=== PATIENT | male | born 1975 | race African-American/Black ===

== ENCOUNTER 2017-06-07 12:55 | Emergency (ER) | payer SELFPAY ==
[~2017-06-07] VITALS: Ht 170.2 cm; Wt 56.8 kg
[~2017-06-07 12:55] MED LIST: AMOXICILLIN500 MG PO; CIPRO500 MG PO; CIPROFLOXACIN500 M1 PO; COMBIVENT INH14.7 GM IH; DELZICOL400 MG PO; FLEXERIL5 MG PO; Flexeril PO; HYDROCODON-ACE1 EAC7 PO; KEFLEX500 MG PO; METRONIDAZOLE500 MG PO; MOTRIN600 MG PO; NAPROSYN500 MG PO; NICOTINE PATCH1 EAC2 TD; NOHOMEMEDS; PERCOCET 5/31 TABLET PO; PROMETHAZINE HC25 M1 PO; PROTONIX40 MG PO; Protonix PO; ULTRAM50 MG PO; VALIUM5 MG PO; VENTOLIN HFA18 GM IH; ZANTAC150 MG PO; ZANTAC300 MG PO; ZOFRAN4 MG PO
[2017-06-07 14:39] LABS: HEMATOCRIT 42.4 % (38.0-50.0); MCH 30.5 PG (29.0-34.0); MCV 92.4 FL (86-99); RBC DIS.WIDTH-CV 13.2 % (11.8-14.6); RBC DIS.WIDTH-SD 44.8 % (39-53); RED BLOOD COUNT 4.59 M/uL (4.00-5.50); WHITE BLOOD COUNT 8.1 K/uL (4.1-10.2)
[2017-06-07 14:47] LABS: AMYLASE 135 IU/L (1-118); CHLORIDE 104 mEq/L (99-109); POTASSIUM 3.7 mEq/L (3.7-5.4); SODIUM 140 mEq/L (136-147)
[2017-06-07 14:49] LABS: GLUCOSE 90 mg/dL (70-99)
[2017-06-07 14:50] LABS: ANION GAP 11 MEQ/L (2-14)
[2017-06-07 14:51] LABS: TOTAL BILIRUBIN 0.6 mg/dL (0.0-1.0)
[2017-06-07 14:52] LABS: ALKALINE PHOSPHATASE 110 IU/L (3-129); SERUM ETHYL ALCOHOL < 10 mg/dL
[2017-06-07 14:53] LABS: GFR ESTIMATE (CALCULATED) > 59 mL/min/
[2017-06-07 14:54] LABS: UREA NITROGEN (BUN) 7 mg/dL (9-23)
[2017-06-07 15:11] LABS: HEMATOLOGY COMMENT 1 SN; MEAN PLAT.VOLUME 11.1 uM^3 (9.0-12.4); PLAT.SUFFICIENCY ADEQUATE; PLATELET COUNT 226 K/uL (156-360)
[2017-06-07 15:12] LABS: DIRECT BILIRUBIN 0.3 mg/dL (0.0-0.3); LIPASE 7 U/L (1.0-51.0)
[2017-06-07 18:20] LABS: ADD MIUA? YES; BILIRUBIN NEGATIVE; BLOOD NEGATIVE; COLOR YELLOW ((YELLOW)); GLUCOSE (STRIP) NEGATIVE; KETONES 20; LEUKOCYTES TRACE; NITRITE NEGATIVE; PROTEIN (STRIP) NEGATIVE; UROBILINOGEN 0.2 MG/DL (0.2-1.0)
[2017-06-07 18:25] LABS: BACTERIA NONE SEEN /HPF; EPITHELIAL CELLS RARE /HPF; MUCUS TRACE /LPF; RED BLOOD CELLS 0-5 /HPF (0-5); UCUL ADDED? NO; WHITE BLOOD CELLS 0-5 /HPF (0-5)
[2017-06-07] MEDS ORDERED: BENTYL20 MG PO (18:31)
[2017-06-07] MEDS ORDERED: ZOFRAN ODT4 MG PO (18:31)
[2017-06-07] MEDS ORDERED: PHENERGAN25 MG PR (18:31)
[2017-06-07 19:05] VITALS: BP 133/78
== END 2017-06-07 19:06 | disposition home or self-care (01) ==
LOC: EME 12:55
PROVIDERS: Nurse Practitioner Family
DX: K50.90 Crohn's disease, unspecified, without complications (principal); R10.11 Right upper quadrant pain; R11.2 Nausea with vomiting, unspecified; Q61.01 Congenital single renal cyst; F17.200 Nicotine dependence, unspecified, uncomplicated
CPT/HCPCS: 74177; 80053; 81003; 82150; 82248; 83690; 85027; 99281; 99285; C9113; G0480; J0500; J2405; J2765; J3010; J7040

== ENCOUNTER 2017-07-22 01:46 | Emergency (ER) | payer OTHER ==
[~2017-07-22] VITALS: Ht 172.7 cm; Wt 60.6 kg
[~2017-07-22 01:46] MED LIST changes: +BENTYL20 MG PO; +PHENERGAN25 MG PR; +ZOFRAN ODT4 MG PO
[2017-07-22] MEDS ORDERED: PEN-VEE K,VEET500 MG PO (03:13)
[2017-07-22 04:02] VITALS: BP 115/77
== END 2017-07-22 04:04 | disposition home or self-care (01) ==
LOC: EME 01:46
DX: K08.89 Other specified disorders of teeth and supporting structures (principal); J02.9 Acute pharyngitis, unspecified
CPT/HCPCS: 99281; 99284

== ENCOUNTER 2017-09-13 21:43 | Emergency (ER) | payer OTHER ==
[~2017-09-13] VITALS: Ht 170.2 cm; Wt 62.3 kg
[~2017-09-13 21:43] MED LIST changes: +MOTRIN800 MG PO; +NORCO 7.5/321 TABLET PO; +PEN-VEE K,VEET500 MG PO
[2017-09-13] MEDS ORDERED: KEFLEX500 MG PO (23:42)
[2017-09-14 00:32] VITALS: BP 120/73
== END 2017-09-14 00:36 | disposition home or self-care (01) ==
LOC: EME 21:43
DX: S81.002A Unspecified open wound, left knee, initial encounter (principal); X58.XXXA Exposure to other specified factors, initial encounter; J45.909 Unspecified asthma, uncomplicated; F17.200 Nicotine dependence, unspecified, uncomplicated
CPT/HCPCS: 73564; 87070; 87075; 87077; 87147; 87186; 87205; 99281; 99284

== ENCOUNTER 2017-09-15 17:54 | Inpatient (IN) | payer OTHER ==
[~2017-09-15] VITALS: Ht 170.2 cm; Wt 60.2 kg
[2017-09-15 18:30] LABS: HEMATOCRIT 45.1 % (38.0-50.0); MCHC 33.7 G/DL (30.0-36.0); RBC DIS.WIDTH-CV 12.9 % (11.8-14.6); RBC DIS.WIDTH-SD 43.9 % (39-53); WHITE BLOOD COUNT 12.7 K/uL (4.1-10.2)
[2017-09-15 18:41] LABS: CHLORIDE 103 mEq/L (99-109); POTASSIUM 3.5 mEq/L (3.7-5.4); SODIUM 142 mEq/L (136-147)
[2017-09-15 18:42] LABS: GLUCOSE 91 mg/dL (70-99)
[2017-09-15 18:44] LABS: ANION GAP 10 MEQ/L (2-14)
[2017-09-15 18:46] LABS: GFR ESTIMATE (CALCULATED) > 59 mL/min/ (58.99-99999)
[2017-09-15 18:47] LABS: UREA NITROGEN (BUN) 10 mg/dL (9-23)
[2017-09-15 19:21] LABS: PLATELET CLUMPS PRESENT - PLATELET COUNT APPEARS ADQ.; PLATELET COUNT UNABLE TO REPORT K/uL (156-360)
[2017-09-15 22:34] VITALS: BP 118/73
[2017-09-16 06:45] LABS: ANION GAP 6 MEQ/L (2-14); CHLORIDE 105 MEQ/L (99-109); GFR ESTIMATE (CALCULATED) > 59 mL/min/ (58.99-99999); GLUCOSE 84 mg/dL (70-99); POTASSIUM 3.9 MEQ/L (3.7-5.4); SAMPLE HEMOLYSIS CHECK 0; SAMPLE ICTERIC CHECK 0; SAMPLE LIPEMIA CHECK 0; SODIUM 142 MEQ/L (136-147); UREA NITROGEN (BUN) 9 mg/dL (9-23)
[2017-09-16 08:14] VITALS: BP 123/62
[2017-09-16 09:06] LABS: EOSINOPHIL (%) 9.5 % (0-5); EOSINOPHIL COUNT 0.7 K/uL (0-0.3); HEMATOCRIT 38.6 % (38.0-50.0); IMMATURE GRANULOCYTE (%) 0.7 % (0.0-0.7); IMMATURE GRANULOCYTE COUNT 0.1 K/uL; INSTRUMENT ABS NEUTROPHIL CT 4.3 K/uL; LYMPHOCYTE COUNT 1.8 K/uL (1.0-2.8); MCH 29.9 PG (29.0-34.0); MCHC 32.4 G/DL (30.0-36.0); MCV 92.3 FL (86-99); MONOCYTE (%) 9.1 % (3-12); MONOCYTE COUNT 0.7 K/uL (0-0.8); NEUTROPHIL (%) 56.9 % (45-76); NEUTROPHIL COUNT 4.3 K/uL (1.8-6.4); RBC DIS.WIDTH-CV 12.9 % (11.8-14.6); RBC DIS.WIDTH-SD 43.6 % (39-53); RED BLOOD COUNT 4.18 M/uL (4.00-5.50); WHITE BLOOD COUNT 7.6 K/uL (4.1-10.2)
[2017-09-16 09:41] LABS: MEAN PLAT.VOLUME 11.2 uM^3 (9.0-12.4); PLAT.SUFFICIENCY ADEQUATE
[2017-09-16 09:57] LABS: PLATELET COUNT 204 K/uL (156-360)
[2017-09-16] MEDS ORDERED: BENADRYL50 MG PO (13:06)
[2017-09-16 16:34] VITALS: BP 109/60
[2017-09-16 19:48] VITALS: BP 130/69
[2017-09-16 23:58] VITALS: BP 125/62
[2017-09-17 07:50] VITALS: BP 144/75
[2017-09-17] MEDS ORDERED: DOXYCYCLINE HY100 MG PO (09:10)
[2017-09-17] MEDS ORDERED: MEPILEX BORDER1 EACH TP (09:11)
== END 2017-09-17 14:09 | disposition home or self-care (01) | DRG 607 ==
LOC: EME 17:54 → EDOF 20:14 → 5SOUTH 20:14 → ENRESERV 20:18 → 5SOUTH 22:08
PROVIDERS: Hospitalist; Physician Assistant Medical
DX: L27.1 Localized skin eruption due to drugs and medicaments taken internally (principal); T36.1X5A Adverse effect of cephalosporins and other beta-lactam antibiotics, initial encounter; L03.116 Cellulitis of left lower limb; B95.61 Methicillin susceptible Staphylococcus aureus infection as the cause of diseases classified elsewhere; L01.00 Impetigo, unspecified; J45.909 Unspecified asthma, uncomplicated; Z87.11 Personal history of peptic ulcer disease; Z82.49 Family history of ischemic heart disease and other diseases of the circulatory system; Z82.5 Family history of asthma and other chronic lower respiratory diseases; Z80.0 Family history of malignant neoplasm of digestive organs; Z83.3 Family history of diabetes mellitus
CPT/HCPCS: 73564; 80048; 83605; 85025; 85027; 87070; 87075; 87077; 87147; 87186; 87205; 99281; 99284; 99285; A6212; A6260; J3370; J7050; J7120

== ENCOUNTER 2017-10-28 09:41 | Emergency (ER) | payer OTHER ==
[~2017-10-28] VITALS: Ht 170.2 cm; Wt 60.5 kg
[~2017-10-28 09:41] MED LIST changes: +BENADRYL50 MG PO; +DOXYCYCLINE HY100 MG PO; +MEPILEX BORDER1 EACH TP
[2017-10-28] MEDS ORDERED: MOTRIN600 MG PO (11:23)
[2017-10-28 11:28] VITALS: BP 130/80
== END 2017-10-28 11:23 | disposition home or self-care (01) ==
LOC: EME 09:41
DX: S39.012A Strain of muscle, fascia and tendon of lower back, initial encounter (principal); V43.52XA Car driver injured in collision with other type car in traffic accident, initial encounter; Y92.410 Unspecified street and highway as the place of occurrence of the external cause; Z88.1 Allergy status to other antibiotic agents
CPT/HCPCS: 99281; 99283

== ENCOUNTER 2018-03-15 17:00 | Inpatient (IN) | payer OTHER ==
[~2018-03-15] VITALS: Ht 172.7 cm; Wt 57.8 kg
[2018-03-15 18:41] LABS: HEMOGLOBIN 13.9 G/DL (12.5-16.6); MCH 30.5 PG (29.0-34.0); MCHC 33.1 G/DL (30.0-36.0); MCV 92.1 FL (86-99); RBC DIS.WIDTH-CV 13.1 % (11.8-14.6); RED BLOOD COUNT 4.56 M/uL (4.00-5.50); WHITE BLOOD COUNT 12.6 K/uL (4.1-10.2)
[2018-03-15 18:55] LABS: CHLORIDE 101 mEq/L (99-109); POTASSIUM 4.3 mEq/L (3.7-5.4); SODIUM 138 mEq/L (136-147)
[2018-03-15 18:57] LABS: GLUCOSE 98 mg/dL (70-99)
[2018-03-15 19:01] LABS: CREATININE 0.9 mg/dL (0.6-1.3); GFR ESTIMATE (CALCULATED) > 59 mL/min/ (58.99-99999)
[2018-03-15 19:02] LABS: UREA NITROGEN (BUN) 7 mg/dL (9-23)
[2018-03-15] MEDS ORDERED: FLEXERIL10 MG PO (20:47)
[2018-03-15] MEDS ORDERED: VENTOLIN HFA18 GM IH (20:47)
[2018-03-15] MEDS ORDERED: NEURONTIN100 MG PO (20:47)
[2018-03-15 21:17] LABS: PLAT.SUFFICIENCY ADEQUATE; PLATELET COUNT 171 K/uL (156-360)
[2018-03-15 22:40] VITALS: BP 118/63
[2018-03-16] VITALS (7 sets, daily range): BP systolic 97–161; BP diastolic 52–60
[2018-03-16 06:40] LABS: BASOPHIL (%) 0.1 % (0-1); EOSINOPHIL (%) 0 % (0-5); HEMATOCRIT 37.3 % (38.0-50.0); LYMPHOCYTE (%) 2.4 % (15-42); LYMPHOCYTE COUNT 0.5 K/uL (1.0-2.8); MCH 29.7 PG (29.0-34.0); MCHC 32.2 G/DL (30.0-36.0); MCV 92.3 FL (86-99); MONOCYTE (%) 1.6 % (3-12); MONOCYTE COUNT 0.4 K/uL (0-0.8); NEUTROPHIL (%) 94.9 % (45-76); NEUTROPHIL COUNT 20.1 K/uL (1.8-6.4); RBC DIS.WIDTH-CV 12.8 % (11.8-14.6); RED BLOOD COUNT 4.04 M/uL (4.00-5.50); WHITE BLOOD COUNT 21.2 K/uL (4.1-10.2)
[2018-03-16 06:48] LABS: PLATELET COUNT 237 K/uL (156-360)
[2018-03-16 07:01] LABS: CHLORIDE 109 MEQ/L (99-109); CREATININE 0.8 MG/DL (0.6-1.3); GFR ESTIMATE (CALCULATED) > 59 mL/min/ (58.99-99999); POTASSIUM 4.4 MEQ/L (3.7-5.4); SODIUM 141 MEQ/L (136-147); UREA NITROGEN (BUN) 10 mg/dL (9-23)
[2018-03-16 07:02] LABS: GLUCOSE 156 mg/dL (70-99)
[2018-03-17 06:23] LABS: BASOPHIL (%) 0.1 % (0-1); EOSINOPHIL (%) 0 % (0-5); HEMATOCRIT 34.7 % (38.0-50.0); HEMOGLOBIN 11.4 G/DL (12.5-16.6); LYMPHOCYTE (%) 3.9 % (15-42); MCH 30.5 PG (29.0-34.0); MCHC 32.9 G/DL (30.0-36.0); MCV 92.8 FL (86-99); MONOCYTE (%) 4.3 % (3-12); MONOCYTE COUNT 1.1 K/uL (0-0.8); NEUTROPHIL (%) 90.7 % (45-76); NEUTROPHIL COUNT 22.6 K/uL (1.8-6.4); PLATELET COUNT 251 K/uL (156-360); RBC DIS.WIDTH-CV 12.9 % (11.8-14.6); RBC DIS.WIDTH-SD 44.6 % (39-53); RED BLOOD COUNT 3.74 M/uL (4.00-5.50); WHITE BLOOD COUNT 24.9 K/uL (4.1-10.2)
[2018-03-17 06:50] LABS: CHLORIDE 110 MEQ/L (99-109); CREATININE 0.7 MG/DL (0.6-1.3); GFR ESTIMATE (CALCULATED) > 59 mL/min/ (58.99-99999); GLUCOSE 139 mg/dL (70-99); SODIUM 143 MEQ/L (136-147); UREA NITROGEN (BUN) 13 mg/dL (9-23)
[2018-03-17 07:35] VITALS: BP 114/71
[2018-03-17] MEDS ORDERED: Robitussin AC,Tussi- PO (11:26)
[2018-03-17] MEDS ORDERED: PREDNISONE10 MG PO (11:26)
[2018-03-17] MEDS ORDERED: LEVAQUIN750 MG PO (11:26)
== END 2018-03-17 14:07 | disposition home or self-care (01) | DRG 194 ==
LOC: RME 17:00 → EME 17:00 → EDOF 20:12 → 2EAST 20:12 → ENRESERV 20:15 → 2EAST 22:29
PROVIDERS: Family Medicine
DX: J18.9 Pneumonia, unspecified organism (principal); Z68.1 Body mass index [BMI] 19.9 or less, adult; E87.2 Acidosis; J20.9 Acute bronchitis, unspecified; J45.909 Unspecified asthma, uncomplicated; R00.0 Tachycardia, unspecified; Z87.891 Personal history of nicotine dependence; Z87.11 Personal history of peptic ulcer disease; Z90.49 Acquired absence of other specified parts of digestive tract; Z88.1 Allergy status to other antibiotic agents; Z82.49 Family history of ischemic heart disease and other diseases of the circulatory system; Z80.8 Family history of malignant neoplasm of other organs or systems
CPT/HCPCS: 71046; 80048; 83605; 85025; 85027; 87040; 93005; 94640; 94640 76; 94760; 99202; 99281; 99285; J1956; J2930; J7030; J7042; J7512